=== PATIENT | male | born 1965 | race Caucasian/White ===

== ENCOUNTER → 2017-05-19 | Outpatient (CLI) | payer BC ==
[~2017-05-19] MED LIST: AUGMENTIN875 MG PO; NORCO 5/3251 TABLET PO; TOPROL XL100 MG PO
== END | disposition home or self-care (01) ==
LOC: CDC 08:26
DX: Z01.810 Encounter for preprocedural cardiovascular examination (principal); R00.1 Bradycardia, unspecified
CPT/HCPCS: 93000

== ENCOUNTER 2017-05-20 05:28 | Day surgery (SDC) | payer BC ==
[~2017-05-20] VITALS: Ht 195.6 cm; Wt 154.2 kg
[~2017-05-20 05:28] MED LIST changes: -NORCO 5/3251 TABLET PO
[2017-05-20 05:44] VITALS: BP 158/80
[2017-05-20] MEDS ORDERED: NORCO 5/3251 TABLET PO (09:08)
[2017-05-20 11:07] VITALS: BP 136/78
[2017-05-20 12:10] VITALS: BP 117/25
[2017-05-20 14:10] VITALS: BP 137/72
== END 2017-05-20 14:17 | disposition home or self-care (01) ==
LOC: SDC 05:28
PROC: 0WUF4JZ Supplement Abdominal Wall with Synthetic Substitute, Percutaneous Endoscopic Approach (ICD-10-PCS; principal; 2017-05-20)
DX: K42.9 Umbilical hernia without obstruction or gangrene (principal); I10 Essential (primary) hypertension; G47.33 Obstructive sleep apnea (adult) (pediatric); E66.9 Obesity, unspecified; Z68.41 Body mass index [BMI] 40.0-44.9, adult
CPT/HCPCS: C1781; J0690; J1100; J1170; J1885; J2250; J2405; J2710; J3010